=== PATIENT | male | born 1970 | race American Indian/Alaskan Native ===

== ENCOUNTER 2016-12-15 18:59 | Emergency (ER) | payer SELFPAY ==
--- NOTE | 2016-12-15 21:22 | XRay Report ---
FINAL REPORT PROCEDURE: XR WRIST 3+V LT TECHNIQUE: LEFT wrist radiographs, including AP, lateral, and oblique views. CPT 44719 HISTORY: wrist pain and swelling COMPARISON: No prior studies are available for comparison. FINDINGS: Fracture (s) and/or Dislocation(s): None . Alignment: Normal . Joint space(s): Normal . Soft tissues: Normal . Bone mineralization: Normal . Foreign bodies: None . IMPRESSION: Normal Examination.
--- NOTE | 2016-12-15 22:37 | Emergency Department Report ---
ED Upper Extremity Inj HPI - General Chief Complaint: Extremity Injury, Upper Stated Complaint: LT WRIST INJURY Time Seen by Provider: 12/15/16 22:26 Source: patient Mode of arrival: Ambulatory Limitations: No Limitations - History of Present Illness Initial Comments: This is a 46-year-old male nontoxic, well nourished in appearance, no acute signs of distress presents to the ED complaining of left wrist pain 2 days. Patient describes pain as aching in quality with level of 10 out of 10. 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 Patient denies any trauma or direct blow to the area. Denies numbness, tingling, fever, chills, joint redness, joint swelling, chest pain, shortness of breath, or nausea or vomiting. Patient denies any allergies or past medical history. MD Complaint: Injury to:: wrist (left) -: Gradual, days(s) (2) Other Extremity Injury: Wrist: Left Other Injuries: none Place: work Severity scale (0 -10): 10 Improves With: movement Worsens With: none Context: other (pushing and lifting boxes at work) Associated Symptoms: denies other symptoms. denies: weakness, numbness, neck pain, suspects foreign body, nausea/vomiting, heard/felt popping sensat - Related Data Previous Rx's Medication Instructions Recorded Last Taken Type Ibuprofen [Motrin 600 MG tab] 600 mg PO Q8H PRN #30 tablet 12/15/16 Unknown Rx Allergies Allergy/AdvReac Type Severity Reaction Status Date / Time No Known Allergies Allergy Unverified 12/15/16 20:10 ED Review of Systems ROS: Stated complaint: LT WRIST INJURY Other details as noted in HPI Constitutional: denies: chills, fever Eyes: denies: eye pain, eye discharge, vision change ENT: denies: ear pain, throat pain Respiratory: denies: cough, shortness of breath, wheezing Cardiovascular: denies: chest pain, palpitations Endocrine: no symptoms reported Gastrointestinal: denies: abdominal pain, nausea, diarrhea Genitourinary: denies: urgency, dysuria Musculoskeletal: denies: back pain, joint swelling, arthralgia Skin: denies: rash, lesions Neurological: denies: headache, weakness, paresthesias Psychiatric: denies: anxiety, depression Hematological/Lymphatic: denies: easy bleeding, easy bruising ED Past Medical Hx - Past Medical History Previous Medical History?: No - Surgical History Past Surgical History?: No - Social History Smoking Status: Current Every Day Smoker Substance Use Type: None - Medications Home Medications: Home Medications Medication Instructions Recorded Confirmed Last Taken Type Ibuprofen [Motrin 600 MG tab] 600 mg PO Q8H PRN #30 tablet 12/15/16 Unknown Rx ED Physical Exam - General Limitations: No Limitations General appearance: alert, in no apparent distress - Head Head exam: Present: atraumatic, normocephalic, normal inspection - Eye Eye exam: Present: normal appearance, PERRL, EOMI. Absent: scleral icterus, conjunctival injection, nystagmus, periorbital swelling, periorbital tenderness Pupils: Present: normal accommodation - ENT ENT exam: Present: normal exam, normal orophraynx, mucous membranes moist, TM's normal bilaterally, normal external ear exam - Neck Neck exam: Present: normal inspection, full ROM. Absent: tenderness, meningismus, lymphadenopathy, thyromegaly - Respiratory Respiratory exam: Present: normal lung sounds bilaterally. Absent: respiratory distress, wheezes, rales, rhonchi, stridor, chest wall tenderness, accessory muscle use, decreased breath sounds, prolonged expiratory - Cardiovascular Cardiovascular Exam: Present: regular rate, normal rhythm, normal heart sounds. Absent: bradycardia, tachycardia, irregular rhythm, systolic murmur, diastolic murmur, rubs, gallop - GI/Abdominal GI/Abdominal exam: Present: soft, normal bowel sounds - Rectal Rectal exam: Present: deferred - Extremities Exam Extremities exam: Present: normal inspection, full ROM, normal capillary refill. Absent: tenderness, pedal edema, joint swelling, calf tenderness - Expanded Upper Extremity Exam Right General: Present: normal inspection Shoulder Exam: Present: normal inspection, full ROM. Absent: tenderness, swelling Upper Arm exam: Present: normal inspection, full ROM. Absent: tenderness, swelling Elbow exam: Present: normal inspection, full ROM. Absent: tenderness, swelling Forearm Wrist exam: Present: normal inspection, full ROM. Absent: tenderness, swelling, abrasion, laceration, ecchymosis, deformity, crepidus, dislocation, erythema, tenderness over anatomical snuff box, pain with axial thumb loading Hand Wrist exam: Present: normal inspection, full ROM. Absent: tenderness, swelling, abrasion, laceration, ecchymosis, deformity, crepidus, dislocation, erythema, amputation, nail avulsion, subungual hematoma Neuro motor exam: Present: wrist extension intact, thumb opposition intact, thumb IP flexion intact, thumb adduction intact, fingers 2-5 abduction intact Neurosensory exam: Present: 2-point discrimination, radial nerve intact, ulnar nerve intact, median nerve intact Vascular: Present: vascular compromise, normal capillary refill, radial pulse, brachial pulse, ulnar pulse - Back Exam Back exam: Present: normal inspection, full ROM. Absent: tenderness, CVA tenderness (R), CVA tenderness (L), muscle spasm, paraspinal tenderness, vertebral tenderness, rash noted - Neurological Exam Neurological exam: Present: alert, oriented X3, CN II-XII intact, normal gait, reflexes normal - Psychiatric Psychiatric exam: Present: normal affect, normal mood - Skin Skin exam: Present: warm, dry, intact, normal color. Absent: rash ED Course Vital Signs 12/15/16 12/15/16 20:08 22:38 Temperature 98.5 F 98.1 F Pulse Rate 66 63 Respiratory 18 16 Rate Blood Pressure 155/91 Blood Pressure 144/91 [Left] O2 Sat by Pulse 100 98 Oximetry - Reevaluation(s) Reevaluation #1: 12/15/16 22:35 Patient is able speak full sentences with no signs of distress. ED Medical Decision Making - Medical Decision Making Patient hemodynamically stable. Patient was examined myself. An x-ray has been obtained of left wrist with negative findings of any fractures or abnormalities. Patient was notified of x-ray findings with no further question about the patient. Patient received an Garry wrap to the left wrist and was instructed to rest, elevate and ice extremity. Patient was notified to follow- up with the orthopedic doctor in 3-5 days or if symptoms worsen and continue return to the emergency room as soon as possible. Patient received ibuprofen 600 mg by mouth at the time of discharge. Critical care attestation.: If time is entered above; I have spent that time in minutes in the direct care of this critically ill patient, excluding procedure time. ED Disposition Clinical Impression: Wrist strain Qualifiers: Encounter type: initial encounter Laterality: left Qualified Code(s): S66.912A - Strain of unspecified muscle, fascia and tendon at wrist and hand level, left hand, initial encounter Disposition: DC-01 TO HOME OR SELFCARE Is pt being admited?: No Does the pt Need Aspirin: No Condition: Stable Instructions: Ibuprofen (By mouth), Wrist Injury (ED) Additional Instructions: follow-up with the orthopedic doctor in 3-5 days or if symptoms worsen and continue return to the emergency room as soon as possible. Rest, elevate, and ice extremity. Prescriptions: Ibuprofen [Motrin 600 MG tab] 600 mg PO Q8H PRN #30 tablet PRN Reason: Pain Referrals: PRIMARY CAREMD [Primary Care Provider] - 3-5 Days MARIA DEL ROSARIO FAY MD [Staff Physician] - 3-5 Days [facility] [Outside] - 3-5 Days [facility] [Outside] - 3-5 Days Forms: Work/School Release Form(ED)
[2016-12-15 23:44] VITALS: BP 145/87
== END 2016-12-15 22:54 | disposition home or self-care (01) ==
LOC: ED 18:59
DX: S66.912A Strain of unspecified muscle, fascia and tendon at wrist and hand level, left hand, initial encounter (principal); F17.200 Nicotine dependence, unspecified, uncomplicated; X50.0XXA Overexertion from strenuous movement or load, initial encounter; Y93.89 Activity, other specified; Y99.8 Other external cause status; Y92.89 Other specified places as the place of occurrence of the external cause
CPT/HCPCS: 99283

== ENCOUNTER 2017-02-02 09:40 | Emergency (ER) | payer OTHER ==
[2017-02-02 10:32] LABS: Hemoglobin 16.1 gm/dl (11.8-15.2); Mean Corpuscular HGB Conc 34 % (32-34); Mean Corpuscular Hemoglobin 30 pg (28-32); Mean Corpuscular Volume 88 fl (84-94); Platelet Count 163 K/mm3 (140-440); Red Blood Count 5.37 M/mm3 (3.65-5.03); Red Cell Distribution Width 13.9 % (13.2-15.2)
[2017-02-02 10:36] LABS: White Blood Count 22.9 K/mm3 (4.5-11.0)
[2017-02-02 10:38] LABS: Anion Gap 19 mmol/L; BUN/Creatinine Ratio 8; Blood Urea Nitrogen 8 mg/dL (9-20); Calcium 9.9 mg/dL (8.4-10.2); Carbon Dioxide 24 mmol/L (22-30); Chloride 97.2 mmol/L (98-107); Glucose 140 mg/dL (75-100); Potassium 3.8 mmol/L (3.6-5.0); Sodium 136 mmol/L (137-145)
[2017-02-02 12:24] LABS: Anisocytosis 1+; Blastocytes % (Manual) 0 %; Eosinophils % (Manual) 0 % (0.0-4.3)
[2017-02-02 12:25] LABS: Diff Status Complete; Macrocytosis Rare
[2017-02-02] MEDS ORDERED: ZOFRAN IV ONE (15:07)
[2017-02-02] MEDS ORDERED: DECADRON IV ONE (15:07)
[2017-02-02] MEDS ORDERED: CLEOCIN 900 MG/50 mL 900 MG/50 ML BAG IV ONE (15:07)
[2017-02-02] MEDS ORDERED: MORPHINE IV ONE (15:07)
[2017-02-02] MEDS ORDERED: NACL 0.9% 1000 ML 1,000 ML IV ONE (15:07)
--- NOTE | 2017-02-02 15:13 | Emergency Department Report ---
ED ENT HPI - General Chief complaint: Sore Throat Stated complaint: THROAT PAIN, CANT SWALLOW Time Seen by Provider: 02/02/17 14:53 Source: patient Mode of arrival: Ambulatory Limitations: No Limitations - History of Present Illness Initial comments: Patient is 46 years old male with no significant past medical history coming in with sore throat and fever or difficulty swallowing for 2 days. Patient stated that he had the same issue a few month ago when he has to go to [place] for assessment. Patient denied any difficulty breathing no shortness of breath no chest pain no other complaints. Patient also denied nausea and vomiting. MD complaint: sore throat, difficulty swallowing -: days(s) Quality: sharp Worsens with: swallowing, eating Associated Symptoms: fever, pain with swallowing, sore throat. denies: cough, gum swelling - Related Data Previous Rx's Medication Instructions Recorded Last Taken Type Ibuprofen [Motrin 600 MG tab] 600 mg PO Q8H PRN #30 tablet 12/15/16 Unknown Rx Allergies Allergy/AdvReac Type Severity Reaction Status Date / Time No Known Allergies Allergy Unverified 12/15/16 20:10 ED Dental HPI - General Chief complaint: Sore Throat Stated complaint: THROAT PAIN, CANT SWALLOW Time Seen by Provider: 02/02/17 14:53 Source: patient Mode of arrival: Ambulatory Limitations: No Limitations - History of Present Illness -: Gradual Severity: moderate Quality: stabbing - Related Data Previous Rx's Medication Instructions Recorded Last Taken Type Ibuprofen [Motrin 600 MG tab] 600 mg PO Q8H PRN #30 tablet 12/15/16 Unknown Rx Allergies Allergy/AdvReac Type Severity Reaction Status Date / Time No Known Allergies Allergy Unverified 12/15/16 20:10 ED Review of Systems ROS: Stated complaint: THROAT PAIN, CANT SWALLOW Other details as noted in HPI Comment: All other systems reviewed and negative Constitutional: chills, fever ENT: throat pain. denies: ear pain Respiratory: denies: cough, shortness of breath, SOB with exertion Cardiovascular: denies: chest pain, palpitations Gastrointestinal: denies: abdominal pain, nausea, vomiting, diarrhea, constipation, hematemesis Genitourinary: denies: urgency, dysuria, frequency, hematuria Skin: denies: rash, change in color, change in hair/nails Neurological: denies: headache, weakness ED Past Medical Hx - Past Medical History Previous Medical History?: No - Surgical History Past Surgical History?: No - Social History Smoking Status: Current Every Day Smoker Substance Use Type: None - Medications Home Medications: Home Medications Medication Instructions Recorded Confirmed Last Taken Type Ibuprofen [Motrin 600 MG tab] 600 mg PO Q8H PRN #30 tablet 12/15/16 Unknown Rx ED Physical Exam - General Limitations: No Limitations General appearance: alert, in no apparent distress - Head Head exam: Present: normocephalic - Eye Eye exam: Present: normal appearance, PERRL - ENT ENT exam: Present: other (pharyngeal erythema) - Neck Neck exam: Present: normal inspection, tenderness, full ROM. Absent: meningismus, lymphadenopathy, thyromegaly - Respiratory Respiratory exam: Present: normal lung sounds bilaterally, chest wall tenderness. Absent: respiratory distress, wheezes, rales, rhonchi, stridor, accessory muscle use, decreased breath sounds, prolonged expiratory - Cardiovascular Cardiovascular Exam: Present: tachycardia. Absent: systolic murmur, diastolic murmur - GI/Abdominal GI/Abdominal exam: Present: soft, normal bowel sounds. Absent: distended, tenderness, guarding, rebound, rigid, mass, bruit, pulsatile mass - Extremities Exam Extremities exam: Present: normal inspection. Absent: tenderness, normal capillary refill, pedal edema - Back Exam Back exam: Present: normal inspection. Absent: tenderness, CVA tenderness (R), CVA tenderness (L) - Neurological Exam Neurological exam: Present: alert, oriented X3, CN II-XII intact, normal gait - Skin Skin exam: Present: warm, intact, normal color ED Course Vital Signs 02/02/17 02/02/17 02/02/17 09:52 15:04 15:34 Temperature 99.5 F 98.6 F Pulse Rate 112 H 105 H Respiratory 20 18 18 Rate Blood Pressure 160/99 Blood Pressure 142/96 [Left] O2 Sat by Pulse 96 96 Oximetry - Reevaluation(s) Reevaluation #1: 02/02/17 18:30 Patient stated that he is feeling much better his difficulty swallowing is getting better. ED Medical Decision Making - Lab Data Result diagrams: 02/02/17 10:10 02/02/17 10:10 - Radiology Data Radiology results: report reviewed CT neck showed evidence of tonsillitis no abscess. No airway compromise. Critical care attestation.: If time is entered above; I have spent that time in minutes in the direct care of this critically ill patient, excluding procedure time. ED Disposition Clinical Impression: Tonsillitis with exudate Disposition: - TO HOME OR SELFCARE Is pt being admited?: No Condition: Stable Instructions: Tonsillitis (ED) Referrals: PRIMARY CARE, [Primary Care Provider] - 3-5 Days
[2017-02-02] MEDS ORDERED: NACL ONE (15:15)
--- NOTE | 2017-02-02 18:00 | Cat Scan Report ---
FINAL REPORT PROCEDURE: CT neck with contrast. TECHNIQUE: Computerized axial tomography of the soft tissue neck was performed following the IV injection of iodinated nonionic contrast. HISTORY: Difficulty swallowing, pharyngitis. COMPARISON: No prior studies are available for comparison. FINDINGS: The nasopharynx, oropharynx and hypopharynx appear normal. There is some enlargement of the palatine tonsils. There are no fluid collections to suggest abscess formation. The larynx appears normal. The thyroid gland enhances uniformly. The parotid and submandibular salivary glands appear normal. There are numerous small bilateral cervical lymph nodes which are likely reactive. These lymph nodes are level 1A, 1B, 2A, 2B and 3. The vascular structures enhance normally. The bones appear intact. The mastoid air cells are clear. The paranasal sinuses are clear as far as visualized. IMPRESSION: Enlargement of the palatine tonsils. Multiple small nonspecific cervical lymph nodes. No evidence of a cervical abscess.
[2017-02-02] MEDS ORDERED: ULTRAM PO ONE (19:07)
[2017-02-02] MEDS ORDERED: ULTRAM ONE (19:09)
[2017-02-02 19:10] VITALS: BP 138/78
== END 2017-02-02 19:10 | disposition home or self-care (01) ==
LOC: ED 09:40
DX: J03.90 Acute tonsillitis, unspecified (principal); F17.210 Nicotine dependence, cigarettes, uncomplicated
CPT/HCPCS: 36415; 70491; 80048; 85007; 85025; 87116; 87430; 96365; 96366; 96375; 99284; J1100; J2270; J2405; J7030; Q9967

== ENCOUNTER 2017-06-15 05:58 | Emergency (ER) | payer OTHER ==
[2017-06-15 07:22] LABS: Basophils # (Auto) 0.1 K/mm3 (0.0-0.1); Basophils % (Auto) 1.1 % (0.0-1.8); Eosinophils # (Auto) 0.3 K/mm3 (0.0-0.4); Hematocrit 46.1 % (35.5-45.6); Hemoglobin 15.4 gm/dl (11.8-15.2); Lymphocytes # (Auto) 1.8 K/mm3 (1.2-5.4); Lymphocytes % (Auto) 26.4 % (13.4-35.0); Mean Corpuscular HGB Conc 33 % (32-34); Mean Corpuscular Hemoglobin 30 pg (28-32); Mean Corpuscular Volume 89 fl (84-94); Monocytes # (Auto) 0.5 K/mm3 (0.0-0.8); Monocytes % (Auto) 7.3 % (0.0-7.3); Platelet Count 178 K/mm3 (140-440); Red Blood Count 5.16 M/mm3 (3.65-5.03)
[2017-06-15 07:30] LABS: BUN/Creatinine Ratio 13; Blood Urea Nitrogen 13 mg/dL (9-20); Calcium 9.4 mg/dL (8.4-10.2); Hemolysis Index 4
[2017-06-15] MEDS ORDERED: NACL 0.9% 1000 ML 1,000 ML IV ONE (09:23)
[2017-06-15] MEDS ORDERED: ZOFRAN IV ONE (09:23)
[2017-06-15] MEDS ORDERED: NACL 0.9% 1000 ML 1,000 ML ONE (09:26)
[2017-06-15] MEDS ORDERED: ZOFRAN ONE (09:26)
[2017-06-15] MEDS ORDERED: ZOFRAN IM ONE (09:27)
[2017-06-15] MEDS ORDERED: ANTIVERT PO ONE (09:27)
--- NOTE | 2017-06-15 09:32 | Emergency Department Report ---
ED Dizziness HPI - General Chief Complaint: Dizziness Stated Complaint: DIZZYNESS Time Seen by Provider: 06/15/17 09:23 Source: patient Mode of arrival: Ambulatory Limitations: No Limitations - History of Present Illness Initial Comments: Patient is 47 years old male with no significant past medical history presented today with sudden onset of dizziness nausea vomiting and right ear pain. Patient stated that he is unable to walk steady,he feel the room is spinning. Patient stated that for the last few days he had been having congestion. Denied any fever, cough or shortness of breath. Patient denied any chest pain. No head trauma or injury recently. No focal motor weakness or numbness or tingling sensation. No bowel or bladder incontinence. MD Complaint: dizziness -: Sudden Timing: sudden onset Description: sense of movement, "room spinning" History of Same: No History of Trauma: No Severity: moderate Improves With: remaining still Worsens With: movement, position Associated Symptoms: denies: ataxia, chest pain, confusion, cough, diaphoresis, fever/chills, loss of appetite, malaise - Related Data Previous Rx's Medication Instructions Recorded Last Taken Type Ibuprofen [Motrin 600 MG tab] 600 mg PO Q8H PRN #30 tablet 12/15/16 Unknown Rx Clindamycin [Clindamycin CAP] 300 mg PO Q8H #30 cap 02/02/17 Unknown Rx Ondansetron [Zofran Odt] 4 mg PO Q8HR PRN #14 tab.rapdis 02/02/17 Unknown Rx Prednisone [predniSONE 10 mg 10 mg PO .TAPER #1 tab.ds.pk 02/02/17 Unknown Rx (6-Day Pack, 21 Tabs)] traMADol [Ultram 50 MG tab] 50 mg PO Q4HR PRN #14 tablet 02/02/17 Unknown Rx Allergies Allergy/AdvReac Type Severity Reaction Status Date / Time No Known Allergies Allergy Unverified 12/15/16 20:10 ED Review of Systems ROS: Stated complaint: DIZZYNESS Other details as noted in HPI Comment: All other systems reviewed and negative Constitutional: denies: chills, fever ENT: ear pain, congestion. denies: hearing loss Cardiovascular: denies: chest pain, palpitations Gastrointestinal: nausea, vomiting. denies: abdominal pain, diarrhea, constipation, hematemesis, melena Genitourinary: denies: urgency, dysuria, frequency, hematuria, discharge, testicular pain, testicular mass Musculoskeletal: denies: back pain Skin: denies: rash Neurological: abnormal gait, vertigo. denies: headache, weakness, numbness, paresthesias, confusion ED Past Medical Hx - Past Medical History Previous Medical History?: No - Surgical History Past Surgical History?: No - Social History Smoking Status: Current Every Day Smoker Substance Use Type: None - Medications Home Medications: Home Medications Medication Instructions Recorded Confirmed Last Taken Type Ibuprofen [Motrin 600 MG tab] 600 mg PO Q8H PRN #30 tablet 12/15/16 Unknown Rx Clindamycin [Clindamycin CAP] 300 mg PO Q8H #30 cap 02/02/17 Unknown Rx Ondansetron [Zofran Odt] 4 mg PO Q8HR PRN #14 tab.rapdis 02/02/17 Unknown Rx Prednisone [predniSONE 10 mg 10 mg PO .TAPER #1 tab.ds.pk 02/02/17 Unknown Rx (6-Day Pack, 21 Tabs)] traMADol [Ultram 50 MG tab] 50 mg PO Q4HR PRN #14 tablet 02/02/17 Unknown Rx ED Physical Exam - General Limitations: No Limitations General appearance: alert, in no apparent distress, other (patient is dizzy when I asked him to walk but no ataxia) - Head Head exam: Present: atraumatic, normocephalic, normal inspection - Eye Eye exam: Present: normal appearance, PERRL - ENT ENT exam: Present: normal exam, normal orophraynx, mucous membranes moist, other (right tympanic membrane fullness but no evidence of erythema or significant fluid behind the eardrum) - Neck Neck exam: Present: normal inspection, full ROM. Absent: tenderness, meningismus, lymphadenopathy, thyromegaly - Respiratory Respiratory exam: Present: normal lung sounds bilaterally. Absent: respiratory distress, wheezes, rales, rhonchi, stridor, chest wall tenderness, accessory muscle use, decreased breath sounds, prolonged expiratory - Cardiovascular Cardiovascular Exam: Present: regular rate, normal rhythm, normal heart sounds - GI/Abdominal GI/Abdominal exam: Present: soft, normal bowel sounds. Absent: distended, tenderness, guarding, rebound, rigid, organomegaly, mass, bruit, pulsatile mass , hernia - Extremities Exam Extremities exam: Present: normal inspection, full ROM, normal capillary refill - Back Exam Back exam: Present: normal inspection. Absent: CVA tenderness (R), CVA tenderness (L) - Neurological Exam Neurological exam: Present: alert, oriented X3, CN II-XII intact, normal gait, reflexes normal. Absent: abnormal gait, motor sensory deficit - Skin Skin exam: Present: warm, intact, normal color ED Course Vital Signs 06/15/17 06/15/17 06/15/17 06:11 09:27 12:15 Temperature 97.2 F L Pulse Rate 76 77 77 Respiratory 20 18 18 Rate Blood Pressure 128/88 Blood Pressure 118/82 124/76 [Right] O2 Sat by Pulse 96 98 99 Oximetry ED Medical Decision Making - Lab Data Result diagrams: 06/15/17 06:48 06/15/17 06:48 - EKG Data -: EKG Interpreted by Ak EKG shows normal: sinus rhythm - EKG Data Interpretation: no acute changes - Radiology Data Radiology results: report reviewed Referring Physician: LENNY PEREZ Patient Name: ADRIENNE BAZZI Date of : 1970 Sex: Male Report Date: 2017-06-15 Report Status: Finalized Findings [facility] [address] [place] [address] Cat Scan Report Signed Patient: ADRIENNE BAZZI MR#: [id number] : 1970 Acct:[id number] Age/Sex: 47 / M ADM Date: 06/15/17 Loc: ED Attending Dr: Ordering Physician: LENNY PEREZ Date of Service: 06/15/17 Procedure(s): CT head/brain wo con Accession Number(s): [id number] cc: LENNY PEREZ CT HEAD WITHOUT CONTRAST: HISTORY: Dizziness. TECHNIQUE: Sequential 2.5mm CT images. COMPARISON: none. FINDINGS: Cerebral Parenchyma: Within normal limits. Cerebellum: Within normal limits. Brainstem: Within normal limits. Ventricles: Normal. Sella: Normal. Extra-axial spaces: Normal. Basal Cisterns: Normal. Intracranial Hemorrhage: None. Midline Shift: None. Calvarium: Normal. Sinuses: Normal. Mastoid Air Cells: Normal. Visualized Orbits: Normal. IMPRESSION: Cranial CT scan within normal limits. Transcribed By: TTR Dictated By: MADI BYRD JR, MD Electronically Authenticated By: MADI BYRD JR, MD Signed Date/Time: 06/15/17 1009 DD/ 1009 TD/TT: 06/15/17 1009 Critical care attestation.: If time is entered above; I have spent that time in minutes in the direct care of this critically ill patient, excluding procedure time. ED Disposition Clinical Impression: Dizziness Disposition: DC-01 TO HOME OR SELFCARE Is pt being admited?: No Condition: Stable Instructions: Vertigo (ED), Dizziness (ED) Referrals: PRIMARY CARE, [Primary Care Provider] - 3-5 Days
[2017-06-15 09:42] LABS: Alanine Aminotransferase 25 units/L (7-56); Albumin 4.5 g/dL (3.9-5); Lipase 30 units/L (13-60)
[2017-06-15 09:47] LABS: Bilirubin,Direct < 0.2 mg/dL (0-0.2)
--- NOTE | 2017-06-15 10:16 | Cat Scan Report ---
CT HEAD WITHOUT CONTRAST: HISTORY: Dizziness. TECHNIQUE: Sequential 2.5mm CT images. COMPARISON: none. FINDINGS: Cerebral Parenchyma: Within normal limits. Cerebellum: Within normal limits. Brainstem: Within normal limits. Ventricles: Normal. Sella: Normal. Extra-axial spaces: Normal. Basal Cisterns: Normal. Intracranial Hemorrhage: None. Midline Shift: None. Calvarium: Normal. Sinuses: Normal. Mastoid Air Cells: Normal. Visualized Orbits: Normal. IMPRESSION: Cranial CT scan within normal limits.
[2017-06-15 12:16] VITALS: BP 124/76
[2017-06-15 12:45] LABS: Bilirubin,Urine NEG (Negative); Blood,Urine NEG (Negative); Color,Urine Straw (Yellow); Mucus,Urine FEW /HPF; Nitrite,Urine NEG (Negative); Urobilinogen,Urine < 2.0 mg/dL (<2.0); WBC,Urine < 1.0 /HPF (0.0-6.0)
== END 2017-06-15 16:05 | disposition home or self-care (01) ==
LOC: ED 05:58
DX: R42 Dizziness and giddiness (principal); R11.2 Nausea with vomiting, unspecified; H92.01 Otalgia, right ear; F17.200 Nicotine dependence, unspecified, uncomplicated
CPT/HCPCS: 36415; 70450; 80048; 80074; 81001; 83690; 85025; 93005; 93010; 96372; 99284; J2405; J7030